=== PATIENT | female | born 1975 | race Caucasian/White ===

== ENCOUNTER → 2017-09-25 16:58 | Outpatient (CLI) | payer BC, SELFPAY ==
--- NOTE | 2017-09-25 17:00 | MM_ITS ---
MM Dig screening mamm BI w/CAD CAD Screening ORDERING PHYSICIAN : Augustine Voss MD PATIENT AGE: 42 years GENDER: Female COMPARISON: Previous mammograms: November 2016 right mammogram. Bilateral mammogram April 2016 most helpful INDICATION: 42-year-old. No hormones. No complaints. Noncontributory family history TECHNIQUE: Standard CC and MLO images were obtained. R2 CAD reviewed. FINDINGS: Moderately dense & asymmetric inhomogeneous breast . However overall pattern of breast appears stable with no new areas of significant concern. No dominant mass nor suspicious calcifications either breast. RIGHT BREAST: No new of significant concern The mild asymmetry at the lateral right breast it has remained stable since those previous studies. No significant new findings in this moderately dense inhomogeneous appearing breast. Bilateral follow-up one year would be adequate LEFT BREAST:. No new areas of significant concern Stable minimal nodularity towards upper outer quadrant follow-up one year adequate IMPRESSION: No new areas of significant concern either breast. Moderately dense asymmetric inhomogeneous breast pattern . Bilateral follow-up in one year recommended and should be emphasized BI-RADS Category: 2 Benign Finding(s) RECOMMENDED FOLLOW-UP: 1YR - 1 YEAR FOLLOW-UP (A letter has been sent to the patient regarding results of the study.)
== END ==
PROVIDERS: Family Provider Nurse Practitioner Family; PCP Nurse Practitioner Family; Visit Provider Nurse Practitioner Obstetrics & Gynecology
DX: Z12.31 Encounter for screening mammogram for malignant neoplasm of breast (principal)
CPT/HCPCS: 77067

== ENCOUNTER → 2017-10-17 17:41 | Outpatient (REF) | payer BC, SELFPAY | LOC: LAB 17:41 | PROVIDERS: Visit Provider Nurse Practitioner Obstetrics & Gynecology | DX: Z01.419 Encounter for gynecological examination (general) (routine) without abnormal findings (principal) | CPT/HCPCS: 87086; 87088; 87186 ==

== ENCOUNTER → 2019-01-23 16:22 | Outpatient (CLI) | payer BC, SELFPAY ==
--- NOTE | 2019-01-23 16:23 | MM_ITS ---
MM Dig screening mamm BI w/CAD CAD Screening COMPARISON: Digital mammograms with CAD 09/25/2017 at 05/05/2016 INDICATION: There is no personal or family history of breast cancer TECHNIQUE: Standard CC and MLO images were obtained. R2 CAD reviewed. FINDINGS: Moderate scattered fibroglandular densities are seen in the central portions of both breasts. There is a mole marker left breast. There are few benign-appearing microcalcifications in each breast. There is a stable nodular density upper outer quadrant left breast. There is no suspicious lesion and there are no suspicious microcalcifications. IMPRESSION: Moderate breast density with no suspicious lesion seen BI-RADS Category: 2 Benign Finding(s) RECOMMENDED FOLLOW-UP: 1YR - 1 YEAR FOLLOW-UP (A letter has been sent to the patient regarding results of the study.)
== END ==
PROVIDERS: PCP Nurse Practitioner Family; Visit Provider Nurse Practitioner Obstetrics & Gynecology
DX: Z12.31 Encounter for screening mammogram for malignant neoplasm of breast (principal)
CPT/HCPCS: 77067

== ENCOUNTER → 2020-08-21 09:58 | Outpatient (CLI) | payer BC, SELFPAY ==
--- NOTE | 2020-08-21 09:59 | MM_ITS ---
PROCEDURE: MM DIG SCREENING MAMM BI W/CAD Digital Breast Tomosynthesis Included CLINICAL INDICATION: screening xmg There is no personal or family history of breast cancer. COMPARISON: MG DMDXUR DIG MAMM-DX UNI-RT W/CAD from 12/12/2016 MG SCBI MM Dig screening mamm BI w/CAD from 09/25/2017 MG MM DIG SCREENING MAMM BI W/CAD from 01/23/2019 TECHNIQUE: Standard CC and MLO images and 3D Tomosynthesis was obtained. R2 CAD reviewed. FINDINGS: Mild to moderate diffuse fibroglandular densities are seen in the central portions of both breasts. There are couple of benign-appearing microcalcifications right breast. There is a stable small benign-appearing nodular density upper central left breast. There is minimal faint arterial calcification left breast. There is no suspicious lesion in either breast and no suspicious microcalcifications. IMPRESSION: Mild to moderate breast density with no suspicious lesions seen BI-RAD Category: 2 Benign Finding(s) FOLLOW-UP: 1YR 1 Year Follow-up (A letter has been sent to the patient regarding results of the study.) Dictated by: Dr. Sánchez Pereira MD 08/25/2020 19:22 Dr. Sánchez Pereira MD in [place] 08/25/2020 19:22
== END ==
PROVIDERS: PCP Nurse Practitioner Family; Visit Provider Nurse Practitioner Obstetrics & Gynecology
DX: Z12.31 Encounter for screening mammogram for malignant neoplasm of breast (principal)
CPT/HCPCS: 77063; 77067

== ENCOUNTER → 2020-08-21 15:35 | Outpatient (CLI) | payer BC, SELFPAY | PROVIDERS: Visit Provider Nurse Practitioner Obstetrics & Gynecology | DX: N39.0 Urinary tract infection, site not specified (principal) | CPT/HCPCS: 87086; 87088; 87186 ==

== ENCOUNTER → 2021-12-09 15:58 | Outpatient (CLI) | payer BC, SELFPAY ==
--- NOTE | 2021-12-09 16:01 | MM_ITS ---
PROCEDURE INFORMATION: Exam: MG Bilateral Screening 3D Mammography Exam date and time: 12/09/2021 3:57 PM Age: 46 years old Clinical indication: Screening examination TECHNIQUE: Imaging protocol: Bilateral Screening tomosynthesis and 2D mammography including computer-aided detection (CAD) when performed. COMPARISON: 1. MG MM DIG SCREENING MAMM BI W/CAD 08/21/2020 10:00 AM 2. MG MM DIG SCREENING MAMM BI W/CAD 01/23/2019 4:29 PM FINDINGS: MAMMOGRAPHY: Breast composition: There are scattered areas of fibroglandular density. Mass: None. Architectural distortion: None. Calcifications: No suspicious calcifications. Asymmetric density: None. Skin thickening: None. Axillary adenopathy: None. IMPRESSION: No mammographic evidence of malignancy. Annual screening is recommended unless otherwise clinically indicated. ASSESSMENT: BI-RADS Category 1: Negative
== END ==
PROVIDERS: PCP Nurse Practitioner Family; Visit Provider Nurse Practitioner Obstetrics & Gynecology
DX: Z12.31 Encounter for screening mammogram for malignant neoplasm of breast (principal)
CPT/HCPCS: 77063; 77067

== ENCOUNTER → 2022-01-21 10:36 | Outpatient (CLI) | payer BC, SELFPAY ==
--- NOTE | 2022-01-21 10:36 | US_ITS ---
PROCEDURE INFORMATION: Exam: US Right Breast, Complete, Abscess Evaluation Exam date and time: 01/21/2022 11:08 AM Age: 46 years old Clinical indication: Mass, lump, or swelling; Right; Additional info: Abscess of the right breast/ spider bite TECHNIQUE: Imaging protocol: Right Ultrasound of the breast with image documentation. All quadrants and retroareolar regions evaluated. Exam focused on the search and evaluation for abscess. Exam is an emergent request and a non-BIRADS study. COMPARISON: BR US BREAST-RT COMPLETE W/AXILLA 12/12/2016 1:41 PM FINDINGS: Mild edema in the subcutaneous tissues. No focal collections. 7 mm cyst noted at the 11 o'clock position. Axillary lymph nodes measuring up to 1.3 cm. IMPRESSION: Subcutaneous edema may represent simple edema or cellulitis. No evidence of abscess.
== END ==
PROVIDERS: PCP Nurse Practitioner Family; Visit Provider Obstetrics & Gynecology
DX: N61.1 Abscess of the breast and nipple (principal)
CPT/HCPCS: 76641

== ENCOUNTER → 2022-04-20 08:25 | Outpatient (CLI) | payer BC, SELFPAY ==
--- NOTE | 2022-04-20 08:30 | US_ITS ---
FINAL REPORT CLINICAL HISTORY: left lower quad pain FINDINGS: Transvaginal sonographic images of the pelvis were obtained. The uterus measures 4.1 cm. The endometrium measures 3 mm. The ovaries are normal with normal blood flow. No free fluid is identified. There is no adnexal mass. IMPRESSION: No acute process. Reviewed, Interpreted and Dictated by Miguel Angel Howell III, MD Transcribed by Liset Douglas Authenticated and . [facility]
== END ==
PROVIDERS: PCP Nurse Practitioner Family; Visit Provider Nurse Practitioner Obstetrics & Gynecology
DX: R10.32 Left lower quadrant pain (principal)
CPT/HCPCS: 76830

== ENCOUNTER → 2023-02-21 16:21 | Outpatient (CLI) | payer BC, SELFPAY ==
[2023-03-06 11:22] LABS: Factor V Leiden Not Detected
== END ==
PROVIDERS: PCP Nurse Practitioner Family; Visit Provider Nurse Practitioner Family
DX: Z01.818 Encounter for other preprocedural examination (principal)
CPT/HCPCS: 36415; 81241